=== PATIENT | female | born 1990 | race Caucasian/White ===

== ENCOUNTER → 2020-04-18 | Outpatient (CLI) | payer OTHER ==
[~2020-04-18] MED LIST: AMOXICILLIN 8751 TAB PO; TASIGNA150 MG PO
== END ==
LOC: ZCOL.LAB 15:17
DX: Z20.828 Contact with and (suspected) exposure to other viral communicable diseases (principal)

== ENCOUNTER 2020-07-19 22:09 | Emergency (ER) | payer BC ==
[~2020-07-19] VITALS: Ht 152.4 cm; Wt 76.8 kg
[2020-07-19 23:08] LABS: COLLECTION METHOD CLEAN CATCH
[2020-07-19 23:25] VITALS: TEMP 98.6
[2020-07-19 23:26] LABS: MEAN CELL VOLUME 79 fl (80.0-100.0); MEAN CORPUSCULAR HGB CONC 30 g/dl (33.0-37.0); MEAN PLATELET VOLUME 10.2 fl (7.4-10.4); PLATELET COUNT 285 K/mm3 (130-400); RED BLOOD COUNT 3.98 M/mm3 (4.10-5.30); REDCELL DISTRIBUTION WIDTH-CV 22.9 % (11.5-14.5)
[2020-07-19 23:29] LABS: PH 7 (5-8); SQUAMOUS EPITHELIAL 0-2 /hpf; URINE APPEARANCE Clear; URINE BACTERIA Rare /hpf; URINE BILIRUBIN Negative (NEGATIVE); URINE BLOOD Negative (NEGATIVE); URINE COLOR Yellow; URINE GLUCOSE Negative (NEGATIVE); URINE KETONE Negative (NEGATIVE); URINE LEUKOCYTE ESTERASE Negative (NEGATIVE); URINE NITRATE Negative (NEGATIVE); URINE PROTEIN(semi-quant) Negative (NEGATIVE); URINE RBC 0-2 /hpf; URINE UROBILINOGEN Negative (NEGATIVE)
[2020-07-19 23:30] LABS: HEMATOCRIT 31.4 % (37.0-47.0); HEMOGLOBIN 9.5 g/dl (12.5-16.0); MEAN CORPUSCULAR HEMOGLOBIN 24 pg (27.0-31.0)
[2020-07-19 23:38] LABS: ALANINE AMINOTRANSFERASE 62 U/L (4-34); ALBUMIN 4.8 gm/dL (3.5-5.0); ALKALINE PHOSPHATASE 138 U/L (50-136); ANION GAP 10 mmol/L (7-16); AST,SGOT 44 U/L (15-37); BILIRUBIN,TOTAL 0.5 mg/dL (0.0-1.0); BLOOD UREA NITROGEN 11 mg/dL (7-17); C-REACTIVE PROTEIN 0.7 mg/dL (0.0-0.9); CALCIUM 9.6 mg/dL (8.4-10.2); CARBON DIOXIDE 26 mmol/L (22-30); CHLORIDE 103 mmol/L (98-107); GLUCOSE 101 mg/dL (74-106); LIPASE 162 U/L (23-300); SODIUM 139 mmol/L (137-145); TOTAL PROTEIN 8.1 gm/dL (6.4-8.2)
[2020-07-19 23:47] LABS: TROPONIN-I < 0.012 ng/mL (0.000-0.035)
[2020-07-20 00:11] LABS: BAND 27 % (0-10); BASOPHIL 1 % (0-2); EOSINOPHIL 1 % (0-4); LYMPHOCYTE 8 % (20.0-51.0); MYELOCYTE 7 % (0-0); NEUTROPHILS 54 % (42.0-75.2); OVALOCYTES 1+
[2020-07-20 00:12] LABS: ANISOCYTOSIS 2+; HYPOCHROMIA 1+; PLATELET ESTIMATE NORMAL (NORMAL)
[2020-07-20] MEDS ORDERED: PERCOCET 325 MG1 TA2 PO (01:12)
[2020-07-20 01:53] VITALS: BP 116/78; PULSE 88
== END 2020-07-20 01:53 | disposition home or self-care (01) ==
LOC: COL.ER 22:09
PROVIDERS: Emergency Medicine
DX: C92.10 Chronic myeloid leukemia, BCR/ABL-positive, not having achieved remission (principal)
CPT/HCPCS: J1170; J2270; J2405; J7030

== ENCOUNTER 2023-11-20 08:56 | Emergency (ER) | payer BC ==
[~2023-11-20] VITALS: Ht 152.4 cm; Wt 81.8 kg
[~2023-11-20 08:56] MED LIST changes: +PERCOCET 325 MG1 TA2 PO
[2023-11-20] MEDS ORDERED: Ondansetron 4 MG/2 ML VIAL IV ONE (09:45)
[2023-11-20] MEDS ORDERED: Morphine 4 MG/ML VIAL IV ONE ×3 (09:45→12:30)
[2023-11-20] MEDS ORDERED: LR 1,000 ML IV ONE (09:45)
[2023-11-20 10:09] LABS: MEAN CELL VOLUME 81 fl (80.0-100.0); MEAN CORPUSCULAR HGB CONC 31 g/dl (33.0-37.0); MEAN PLATELET VOLUME 10.4 fl (7.4-10.4); PLATELET COUNT 364 K/mm3 (130-400); RED BLOOD COUNT 3.34 M/mm3 (4.10-5.30); REDCELL DISTRIBUTION WIDTH-CV 23.9 % (11.5-14.5)
[2023-11-20 10:15] LABS: HEMATOCRIT 27.2 % (37.0-47.0); HEMOGLOBIN 8.5 g/dl (12.5-16.0); MEAN CORPUSCULAR HEMOGLOBIN 25 pg (27-31)
[2023-11-20 10:22] LABS: ALANINE AMINOTRANSFERASE 24 U/L (0-55); ALBUMIN 4.1 gm/dL (3.5-5.0); ALKALINE PHOSPHATASE 214 U/L (40-150); ANION GAP 8 mmol/L (7-16); AST,SGOT 35 U/L (5-34); BILIRUBIN,TOTAL 0.6 mg/dL (0.2-1.2); BLOOD UREA NITROGEN < 5 mg/dL (7-19); C-REACTIVE PROTEIN 2.63 mg/dL (0.00-0.50); CALCIUM 9.6 mg/dL (8.4-10.2); CARBON DIOXIDE 21 mmol/L (22-29); CHLORIDE 109 mmol/L (98-107); CREATININE, serum 0.67 mg/dL (0.57-1.11); GLUCOSE 98 mg/dL (70-99); LIPASE 16 U/L (8-78); POTASSIUM 4.1 mmol/L (3.5-4.5); SODIUM 138 mmol/L (136-145); TOTAL PROTEIN 7.7 gm/dL (6.2-8.1)
[2023-11-20] MEDS ORDERED: Iohexol 300 - 100 ML VIAL IV ONE (11:46)
[2023-11-20 13:12] LABS: COLLECTION METHOD CLEAN CATCH
[2023-11-20] MEDS ORDERED: HYDROmorphone 0.5 MG/0.5 ML SYRINGE IV ONE ×2 (13:30→14:45)
[2023-11-20] MEDS ORDERED: NS 1,000 ML IV ONE (13:45)
[2023-11-20 13:50] LABS: SQUAMOUS EPITHELIAL 0-2 /hpf (0-10); URINE APPEARANCE Clear (CLEAR/HAZY); URINE BLOOD Negative (NEGATIVE); URINE COLOR Yellow (YELLOW); URINE GLUCOSE Negative (NEGATIVE); URINE KETONE Negative (NEGATIVE); URINE NITRATE Negative (NEGATIVE); URINE PROTEIN(semi-quant) Negative (NEGATIVE); URINE RBC 0-2 /hpf (0-2); URINE UROBILINOGEN 0.2 E.U/dL (0.2-1.0)
[2023-11-20 15:00] VITALS: BP 117/81; PULSE 91; TEMP 98.6
[2023-11-20 17:20] LABS: BAND 23 % (0-10); BASOPHIL 6 % (0-2); EOSINOPHIL 5 % (0-4); LYMPHOCYTE 2 % (20.0-51.0); METAMYELOCYTE 22 % (0-0); MYELOCYTE 17 % (0-0); NEUTROPHILS 19 % (42.0-75.2); NUCLEATED RED BLOOD CELL 4 (0-6)
[2023-11-20 17:21] LABS: PLATELET ESTIMATE NORMAL (NORMAL)
[2023-11-21 08:11] LABS: PATHOLOGY DIFF REVIEW OK
== END 2023-11-20 15:15 | disposition short-term general hospital (02) ==
LOC: COL.ER 08:56
PROVIDERS: Family Medicine; Nurse Practitioner
DX: D73.5 Infarction of spleen (principal); R16.1 Splenomegaly, not elsewhere classified; C92.10 Chronic myeloid leukemia, BCR/ABL-positive, not having achieved remission; Z90.49 Acquired absence of other specified parts of digestive tract
CPT/HCPCS: J1170; J2270; J2405; J7030; J7120; Q9967